=== PATIENT | female | born 1975 | race Caucasian/White ===

== ENCOUNTER 2017-01-10 14:02 | Emergency (ER) | payer MEDICARE | END 2017-01-10 14:59 | disposition home or self-care (01) | LOC: ER 14:02 | DX: S20.461A Insect bite (nonvenomous) of right back wall of thorax, initial encounter (principal); J98.01 Acute bronchospasm; I10 Essential (primary) hypertension; E78.5 Hyperlipidemia, unspecified; F17.210 Nicotine dependence, cigarettes, uncomplicated; Z79.82 Long term (current) use of aspirin; Z79.899 Other long term (current) drug therapy; W57.XXXA Bitten or stung by nonvenomous insect and other nonvenomous arthropods, initial encounter ==

== ENCOUNTER 2017-01-28 11:51 | Emergency (ER) | payer MEDICARE | END 2017-01-28 13:04 | disposition home or self-care (01) | LOC: ER 11:51 | DX: M62.830 Muscle spasm of back (principal); X58.XXXA Exposure to other specified factors, initial encounter | CPT/HCPCS: 96372; J1100 ==